=== PATIENT | male | born 1995 | race Two or more races ===

== ENCOUNTER 2018-10-30 16:11 | Emergency (ER) | payer BC ==
[~2018-10-30] VITALS: Ht 180.3 cm; Wt 93.4 kg
[2018-10-30 16:20] VITALS: BP 133/91
== END 2018-10-30 18:46 | disposition home or self-care (01) ==
LOC: ER 16:13
DX: M25.561 Pain in right knee (principal); W03.XXXA Other fall on same level due to collision with another person, initial encounter; Y93.63 Activity, rugby; Y92.39 Other specified sports and athletic area as the place of occurrence of the external cause; Y99.8 Other external cause status
CPT/HCPCS: 73564; 99283; A4606